=== PATIENT | male | born 1975 | race American Indian/Alaskan Native ===

== ENCOUNTER 2021-02-24 14:55 | Emergency (ER) | payer BC ==
--- NOTE | 2021-02-24 19:05 | Emergency Department Report ---
ED Abdominal Pain HPI - General Chief Complaint: Abdominal Pain Stated Complaint: LOWER BACK PAIN, FREQUENT URINATION Time Seen by Provider: 02/24/21 18:57 Source: patient Mode of arrival: Ambulatory Limitations: No Limitations - History of Present Illness Initial Comments: Patient is a 45-year-old male presents emergency room complaints of left flank p ain that began 4 days ago. He states that the pain radiates to his left side of his abdomen. He states he has had urinary frequency and hematuria. He states occasionally at the end of urination he feels a tingling sensation. He denies any pain or swelling of the testicles, nausea, vomiting, diarrhea, penile discharge. He states he is sexually active only with 1 partner and denies any concerns for STDs. No past medical history. No allergies medications. - Related Data Previous Rx's Medication Instructions Recorded Last Taken Type Ciprofloxacin HCl [Ciprofloxacin 500 mg PO BID 7 Days #28 tablet 02/24/21 Unknown Rx TAB] Doxycycline Hyclate [Doxycycline 100 mg PO BID 7 Days #14 tab 02/24/21 Unknown Rx Hyclate TAB] Fluconazole [Diflucan TAB] 150 mg PO QDAY 1 Days #3 tablet 02/24/21 Unknown Rx Allergies Allergy/AdvReac Type Severity Reaction Status Date / Time No Known Allergies Allergy Unverified 02/24/21 17:24 ED Review of Systems ROS: Stated complaint: LOWER BACK PAIN, FREQUENT URINATION Other details as noted in HPI Comment: All other systems reviewed and negative ED Past Medical Hx - Medications Home Medications: Home Medications Medication Instructions Recorded Confirmed Last Taken Type Ciprofloxacin HCl [Ciprofloxacin 500 mg PO BID 7 Days #28 tablet 02/24/21 Unknown Rx TAB] Doxycycline Hyclate [Doxycycline 100 mg PO BID 7 Days #14 tab 02/24/21 Unknown Rx Hyclate TAB] Fluconazole [Diflucan TAB] 150 mg PO QDAY 1 Days #3 tablet 02/24/21 Unknown Rx ED Physical Exam - General Limitations: No Limitations General appearance: alert, in no apparent distress - Head Head exam: Present: atraumatic, normocephalic - Eye Eye exam: Present: normal appearance - ENT ENT exam: Present: mucous membranes moist - Respiratory Respiratory exam: Present: normal lung sounds bilaterally. Absent: respiratory distress, wheezes, rales, rhonchi, stridor, chest wall tenderness, accessory muscle use, decreased breath sounds, prolonged expiratory - Cardiovascular Cardiovascular Exam: Present: regular rate, normal rhythm, normal heart sounds. Absent: systolic murmur, diastolic murmur, rubs, gallop - GI/Abdominal GI/Abdominal exam: Present: soft, tenderness (LLQ), normal bowel sounds. Absent: distended, guarding, rebound, rigid - Back Exam Back exam: Present: CVA tenderness (L). Absent: CVA tenderness (R) - Neurological Exam Neurological exam: Present: alert, oriented X3 - Psychiatric Psychiatric exam: Present: normal affect, normal mood - Skin Skin exam: Present: warm, dry, intact ED Course Vital Signs 02/24/21 02/24/21 19:17 20:50 Temperature 98.4 F Pulse Rate 82 92 H Respiratory 16 16 Rate Blood Pressure 124/82 [Left] O2 Sat by Pulse 98 97 Oximetry ED Medical Decision Making - Lab Data Result diagrams: 02/24/21 18:57 02/24/21 18:57 Lab Results 02/24/21 02/24/21 02/24/21 Range/Units 18:57 18:57 19:00 WBC 10.3 (4.5-11.0) K/mm3 RBC 5.20 H (3.65-5.03) M/mm3 Hgb 16.4 H (11.8-15.2) gm/dl Hct 47.5 H (35.5-45.6) % MCV 91 (84-94) fl MCH 32 (28-32) pg MCHC 35 H (32-34) % RDW 12.8 L (13.2-15.2) % Plt Count 184 (140-440) K/mm3 Lymph % (Auto) 22.7 (13.4-35.0) % [place] % (Auto) 6.7 (0.0-7.3) % Eos % (Auto) 0.4 (0.0-4.3) % Baso % (Auto) 0.5 (0.0-1.8) % Lymph # (Auto) 2.3 (1.2-5.4) K/mm3 [place] # (Auto) 0.7 (0.0-0.8) K/mm3 Eos # (Auto) 0.0 (0.0-0.4) K/mm3 Baso # (Auto) 0.1 (0.0-0.1) K/mm3 Seg Neutrophils % 69.7 (40.0-70.0) % Seg Neutrophils # 7.2 (1.8-7.7) K/mm3 Sodium 136 L (137-145) mmol/L Potassium 4.0 (3.6-5.0) mmol/L Chloride 98.4 (98-107) mmol/L Carbon Dioxide 25 (22-30) mmol/L Anion Gap 17 mmol/L BUN 7 L (9-20) mg/dL Creatinine 1.1 (0.8-1.3) mg/dL Estimated GFR > 60 ml/min BUN/Creatinine Ratio 6 % Glucose 88 (75-100) mg/dL Calcium 9.4 (8.4-10.2) mg/dL Total Bilirubin 1.10 (0.1-1.2) mg/dL AST 19 (5-40) units/L ALT 29 (7-56) units/L Alkaline Phosphatase 87 (35-129) units/L Total Protein 9.0 H (6.3-8.2) g/dL Albumin 4.3 (3.9-5) g/dL Albumin/Globulin Ratio 0.9 % Urine Color Yellow (Yellow) Urine Turbidity Cloudy (Clear) Urine pH 5.0 (5.0-7.0) Ur Specific [place] 1.014 (1.003-1.030) Urine Protein 30 mg/dl (Negative) mg/dL Urine Glucose (UA) Neg (Negative) mg/dL Urine Ketones Neg (Negative) mg/dL Urine Blood Neg (Negative) Urine Nitrite Pos (Negative) Urine Bilirubin Neg (Negative) Urine Urobilinogen < 2.0 (<2.0) mg/dL Ur Leukocyte Esterase Lg (Negative) Urine WBC (Auto) > 182.0 H (0.0-6.0) /HPF Urine RBC (Auto) 23.0 (0.0-6.0) /HPF U Epithel Cells (Auto) 1.0 (0-13.0) /HPF Urine Bacteria (Auto) 2+ (Negative) /HPF Urine Mucus Few /HPF Urine Yeast (Budding) 1+ /HPF - Radiology Data Radiology results: report reviewed Ordering Physician: TAMAR MERRITT Date of Service: 02/24/21 Procedure(s): CT abdomen pelvis wo con Accession Number(s): [id number] cc: TAMAR MERRITT CT abdomen pelvis wo con INDICATION / CLINICAL INFORMATION: left flank pain, hematuria. TECHNIQUE: Axial CT imaging of abdomen and pelvis was obtained without contrast. Coronal and sagittal reformatted imaging obtained and reviewed. All CT scans at this location are performed using CT dose reduction for ALARA by means of automated exposure control. COMPARISON: None available. FINDINGS: CT abdomen without contrast demonstrates normal appearance of the liver, spleen, pancreas, right kidney, and adrenal glands. Gallbladder is unremarkable. No intrarenal calculi or hydronephrosis present. There is minimal prominence of the left collecting system and left ureter but there is no visible calculus present within the kidney, ureter, or bladder. This may suggest recent passage of a renal/ureteral calculus. CT pelvis without contrast demonstrates normal appearance of the appendix. No pelvic mass, free fluid, or focal inflammatory changes noted. GI tract is unremarkable. Urinary bladder is mostly collapsed but otherwise unremarkable. Visualized lung bases are well expanded and clear. Review of osseous structures is unremarkable. IMPRESSION: 1. Slight prominence of left urinary collecting system without evidence for visible calculus. This could indicate recent passage of an obstructing calculus with minimal dilatation remaining. Clinical correlation is recommended. 2. No other significant finding. Signer Name: Brittany Mayfield MD Signed: 02/24/2021 7:46 PM Workstation Name: [email or web address] Transcribed By: Dictated By: Brittany Mayfield MD Electronically Authenticated By: Brittany Mayfield MD Signed Date/Time: 02/24/211945 DD/ 40 TD/TT: - Medical Decision Making Patient is a 45-year-old male presents emergency room complaints of left flank pain that began 4 days ago. He states that the pain radiates to his left side of his abdomen. He states he has had urinary frequency and hematuria. He states occasionally at the end of urination he feels a tingling sensation. He denies any pain or swelling of the testicles, nausea, vomiting, diarrhea, penile discharge. He states he is sexually active only with 1 partner and denies any concerns for STDs. No past medical history. No allergies medications. vitals are normal. on exam: LLQ abd pain, left flank tenderness. labs are stable. UA shows evidence of UTI and yeast. pt states he is circumsized. CT abd pelvis: 1. Slight prominence of left urinary collecting system without evidence for visible calculus. This could indicate recent passage of an obstructing calculus with minimal dilatation remaining. Clinicalcorrelation is recommended. 2. No other significant finding. I again asked patient if he was concerned for STDs, he states he would like to be covered for them. Patient given ceftriaxone IM on the emergency department. discussed all results with pt and answered questions. advised pt Take medication as prescribed. Follow-up with a primary care doctor. Please have your urine retested by primary care doctor for clearance of bacteria. Return to emergency room for any new or worsening symptoms. Critical care attestation.: If time is entered above; I have spent that time in minutes in the direct care of this critically ill patient, excluding procedure time. ED Disposition Clinical Impression: Left flank pain, Yeast detected UTI (urinary tract infection) Qualifiers: Urinary tract infection type: acute cystitis Hematuria presence: with hematuria Qualified Code(s): N30.01 - Acute cystitis with hematuria Disposition: TO HOME OR SELFCARE Is pt being admited?: No Does the pt Need Aspirin: No Condition: Stable Instructions: Kidney Stones, Genital Yeast Infection, Male, Urinary Tract Infection, Adult Additional Instructions: Take medication as prescribed. Follow-up with a primary care doctor. Please have your urine retested by primary care doctor for clearance of bacteria. Return to emergency room for any new or worsening symptoms. walk [facility] Address: [address] [place] [id number] Prescriptions: Ciprofloxacin HCl [Ciprofloxacin TAB] 500 mg PO BID 7 Days #28 tablet Fluconazole [Diflucan TAB] 150 mg PO QDAY 1 Days #3 tablet Doxycycline Hyclate [Doxycycline Hyclate TAB] 100 mg PO BID 7 Days #14 tab Referrals: RULA MELENDEZ MD [Staff Physician] - 3-5 Days [facility] [Provider Group] - 3-5 Days Time of Disposition: 20:13 Print Language: MOZAMBICAN
[2021-02-24 19:17] VITALS: BP 124/82
[2021-02-24 19:20] LABS: Bacteria,Urine 2+ /HPF (Negative); Bilirubin,Urine NEG (Negative); Blood,Urine NEG (Negative); Color,Urine Yellow (Yellow); Mucus,Urine FEW /HPF; Urobilinogen,Urine < 2.0 mg/dL (<2.0)
[2021-02-24 19:27] LABS: WBC,Urine > 182.0 /HPF (0.0-6.0)
[2021-02-24 19:30] LABS: Basophils # (Auto) 0.1 K/mm3 (0.0-0.1); Basophils % (Auto) 0.5 % (0.0-1.8); Eosinophils % (Auto) 0.4 % (0.0-4.3); Hematocrit 47.5 % (35.5-45.6); Hemoglobin 16.4 gm/dl (11.8-15.2); Lymphocytes # (Auto) 2.3 K/mm3 (1.2-5.4); Lymphocytes % (Auto) 22.7 % (13.4-35.0); Mean Corpuscular HGB Conc 35 % (32-34); Mean Corpuscular Volume 91 fl (84-94); Monocytes # (Auto) 0.7 K/mm3 (0.0-0.8); Monocytes % (Auto) 6.7 % (0.0-7.3); Platelet Count 184 K/mm3 (140-440); Red Cell Distribution Width 12.8 % (13.2-15.2)
[2021-02-24 19:34] LABS: Alanine Aminotransferase 29 units/L (7-56); Albumin 4.3 g/dL (3.9-5); BUN/Creatinine Ratio 6; Blood Urea Nitrogen 7 mg/dL (9-20); Calcium 9.4 mg/dL (8.4-10.2); Hemolysis Index 8
--- NOTE | 2021-02-24 19:50 | Cat Scan Report ---
CT abdomen pelvis wo con INDICATION / CLINICAL INFORMATION: left flank pain, hematuria. TECHNIQUE: Axial CT imaging of abdomen and pelvis was obtained without contrast. Coronal and sagittal reformatte d imaging obtained and reviewed. All CT scans at this location are performed using CT dose reduction for ALARA by means of automated exposure control. COMPARISON: None available. FINDINGS: CT abdomen without contrast demonstrates normal appearance of the liver, spleen, pancreas, right kidn ey, and adrenal glands. Gallbladder is unremarkable. No intrarenal calculi or hydronephrosis present. There is minimal prominence of the left collecting system and left ureter but there is no visible ca lculus present within the kidney, ureter, or bladder. This may suggest recent passage of a renal/uret eral calculus. CT pelvis without contrast demonstrates normal appearance of the appendix. No pelvic mass, free fluid , or focal inflammatory changes noted. GI tract is unremarkable. Urinary bladder is mostly collapsed but otherwise unremarkable. Visualized lung bases are well expanded and clear. Review of osseous structures is unremarkable. IMPRESSION: 1. Slight prominence of left urinary collecting system without evidence for visible calculus. This co uld indicate recent passage of an obstructing calculus with minimal dilatation remaining. Clinical co rrelation is recommended. 2. No other significant finding. Signer Name: Brittany Mayfield MD Signed: 02/24/2021 7:46 PM Workstation Name: [email or web address]
[2021-02-24] MEDS ORDERED: ONDANSETRON 4 MG ODT TAB PO ONE (19:53)
[2021-02-24] MEDS ORDERED: LIDOCAINE-MPF (1%) 10 MG/1 ML VIAL 5 ML INFILTRATI ONE (19:53)
[2021-02-24] MEDS ORDERED: oxyCODONE /ACETAMINOPHEN 5-325MG TAB PO ONE (19:53)
== END 2021-02-24 20:50 | disposition home or self-care (01) ==
LOC: ED 14:55
DX: N39.0 Urinary tract infection, site not specified (principal); B37.9 Candidiasis, unspecified; R10.9 Unspecified abdominal pain; Z79.899 Other long term (current) drug therapy
CPT/HCPCS: 36415; 74176; 80053; 81001; 85025; 96372; 99284; J0696; Q0162

== ENCOUNTER 2022-02-19 11:45 | Emergency (ER) | payer BC ==
--- NOTE | 2022-02-19 12:45 | XRay Report ---
XR chest routine 2V INDICATION / CLINICAL INFORMATION: chest pain COMPARISON: None available. FINDINGS: SUPPORT DEVICES: None. HEART / MEDIASTINUM: No significant abnormality. LUNGS / PLEURA: Lungs are clear. Costophrenic sulci are sharp. No pneumothorax. ADDITIONAL FINDINGS: No significant additional findings. IMPRESSION: 1. No acute findings. Signer Name: Hunter Ruvalcaba MD Signed: 02/19/2022 12:41 PM Workstation Name: [id number]
[2022-02-19 12:56] LABS: Basophils # (Auto) 0.1 K/mm3 (0.0-0.1); Basophils % (Auto) 2.9 % (0.0-1.8); Eosinophils % (Auto) 0.3 % (0.0-4.3); Hematocrit 43.6 % (35.5-45.6); Hemoglobin 15.4 gm/dl (11.8-15.2); Lymphocytes # (Auto) 1.8 K/mm3 (1.2-5.4); Lymphocytes % (Auto) 35.5 % (13.4-35.0); Mean Corpuscular HGB Conc 36 % (32-34); Mean Corpuscular Volume 88 fl (84-94); Monocytes # (Auto) 0.4 K/mm3 (0.0-0.8); Monocytes % (Auto) 7.4 % (0.0-7.3); Platelet Count 152 K/mm3 (140-440); Red Blood Count 4.96 M/mm3 (3.65-5.03)
[2022-02-19 13:12] LABS: Alanine Aminotransferase 30 units/L (7-56); Albumin 4.7 g/dL (3.9-5); BUN/Creatinine Ratio 7; Blood Urea Nitrogen 7 mg/dL (9-20); Calcium 9.6 mg/dL (8.4-10.2); Hemolysis Index 5
[2022-02-19] MEDS ORDERED: DICYCLOMINE 10 MG/5 ML ORAL LIQD PO ONE (16:13)
[2022-02-19] MEDS ORDERED: ALUM-MAG HYDROXIDE-SIMETHICONE 200-200-20MG/5ML ORAL LIQD 30 ML PO ONE (16:13)
[2022-02-19] MEDS ORDERED: LIDOCAINE VISCOUS 2% 15 ML ORAL LIQD PO ONE (16:14)
--- NOTE | 2022-02-19 16:40 | XRay Report ---
ABDOMEN AP supine 1632 INDICATION: abdominal pain, no bm, r/o constipation COMPARISON: Palliative Medicine Physician images CT abdomen and pelvis 02/24/2021 FINDINGS: Bowel gas pattern is unremarkable. No obvious urinary tract calculi. Signer Name: Rom Singer MD Signed: 02/19/2022 4:35 PM Workstation Name: [email or web address]
--- NOTE | 2022-02-19 17:22 | Emergency Department Report ---
ED Chest Pain HPI - General Chief Complaint: Chest Pain Stated Complaint: CHEST PAIN/ STOMACH PAIN Time Seen by Provider: 02/19/22 16:01 Source: patient Mode of arrival: Ambulatory Limitations: No Limitations - History of Present Illness Initial Comments: 46-year-old black male with a past medical history of HIV presents to the emergency department for evaluation of chest pain. He states that for the last 2 or 3 days he has had persistent burning in his epigastric area then today, he started to have pain and burning to his chest area also. He states that pain was also associated with some nausea, shortness of breath, and a cough. He denies fever, dysuria, active vomiting, dizziness, and diaphoresis. He states pain at its worst was 5 out of 10. Of note, patient states that he does have a history of GERD that he used to take medicine for several years ago but does not anymore. Patient also complains of possible constipation states that he has been able to have a bowel movement in the past 4 days which is unusual for him. MD Complaint: chest pain -: Gradual, hour(s) Onset: during rest Pain Location: substernal, epigastric Pain Radiation: none Severity: moderate Severity scale (0 -10): 6 Quality: other (Burning) Consistency: constant re: nausea, dyspnea. denies: vomting, diaphoresis, sense of impending doom Other Symptoms: cough, burping. denies: fever, syncope, rash, acid taste in mouth, leg swelling, palpitations Treatments Prior to Arrival: none Aspirin use within the Past 7 Days: (0) No - Related Data Previous Rx's Medication Instructions Recorded Last Taken Type Ciprofloxacin HCl [Ciprofloxacin 500 mg PO BID 7 Days #28 tablet 02/24/21 Unknown Rx TAB] Doxycycline Hyclate [Doxycycline 100 mg PO BID 7 Days #14 tab 02/24/21 Unknown Rx Hyclate TAB] Fluconazole [Diflucan TAB] 150 mg PO QDAY 1 Days #3 tablet 02/24/21 Unknown Rx Famotidine [Pepcid] 40 mg PO QHS #30 tab 02/19/22 Unknown Rx Polyethylene Glycol 3350 [Miralax] 119 gm PO DAILY #1 bottle 02/19/22 Unknown Rx Allergies Allergy/AdvReac Type Severity Reaction Status Date / Time No Known Allergies Allergy Verified 02/19/22 17:24 Heart Score - HEART Score History: Slightly suspicious EKG: Normal Age: 45-65 Risk factors: 1-2 risk factors Troponin: < normal limit HEART Score: 2 - EKG Read Time Time EKG Completed: 12:26 EKG Read Time: 12:30 - Critical Actions Critical Actions: 0-3 pts:0.9-1.7%risk of adverse cardiac event.Candidate for discharge ED Review of Systems ROS: Stated complaint: CHEST PAIN/ STOMACH PAIN Other details as noted in HPI Comment: All other systems reviewed and negative Constitutional: denies: chills, fever, weakness Eyes: denies: vision change Respiratory: denies: cough, shortness of breath, SOB with exertion, SOB at rest, stridor, wheezing Cardiovascular: chest pain. denies: palpitations, dyspnea on exertion, orthopnea, edema, syncope, paroxysmal nocturnal dyspnea Gastrointestinal: abdominal pain, nausea, constipation. denies: vomiting, diarrhea, hematemesis, melena, hematochezia Genitourinary: denies: urgency, dysuria, frequency, hematuria, discharge, testicular pain Musculoskeletal: denies: back pain Skin: denies: rash, lesions Neurological: denies: headache, weakness ED Past Medical Hx - Past Medical History Previous Medical History?: No - Surgical History Additional Surgical History: hemorrhoid - Social History Smoking Status: Never Smoker - Medications Home Medications: Home Medications Medication Instructions Recorded Confirmed Last Taken Type Ciprofloxacin HCl [Ciprofloxacin 500 mg PO BID 7 Days #28 tablet 02/24/21 Unknown Rx TAB] Doxycycline Hyclate [Doxycycline 100 mg PO BID 7 Days #14 tab 02/24/21 Unknown Rx Hyclate TAB] Fluconazole [Diflucan TAB] 150 mg PO QDAY 1 Days #3 tablet 02/24/21 Unknown Rx Famotidine [Pepcid] 40 mg PO QHS #30 tab 02/19/22 Unknown Rx Polyethylene Glycol 3350 [Miralax] 119 gm PO DAILY #1 bottle 02/19/22 Unknown Rx ED Physical Exam - General Limitations: No Limitations General appearance: alert, in no apparent distress - Head Head exam: Present: atraumatic, normocephalic - Eye Eye exam: Present: normal appearance. Absent: scleral icterus, conjunctival injection, periorbital swelling, periorbital tenderness - ENT ENT exam: Present: normal exam - Neck Neck exam: Present: normal inspection, full ROM. Absent: tenderness, lymphadenopathy - Respiratory Respiratory exam: Present: normal lung sounds bilaterally. Absent: respiratory distress, wheezes, rales, rhonchi, stridor, chest wall tenderness - Cardiovascular Cardiovascular Exam: Present: bradycardia (Per EKG), normal heart sounds - GI/Abdominal GI/Abdominal exam: Present: soft, tenderness (Epigastric area), normal bowel sounds. Absent: distended, guarding, rebound, rigid - Extremities Exam Extremities exam: Present: normal inspection, full ROM, normal capillary refill. Absent: tenderness, pedal edema, joint swelling, calf tenderness - Back Exam Back exam: Present: normal inspection. Absent: CVA tenderness (R), CVA tend erness (L), vertebral tenderness - Neurological Exam Neurological exam: Present: alert, oriented X3, CN II-XII intact. Absent: motor sensory deficit - Psychiatric Psychiatric exam: Present: normal affect, normal mood - Skin Skin exam: Present: warm, dry, intact, normal color ED Course Vital Signs 02/19/22 18:07 Temperature 98.1 F Pulse Rate 64 Respiratory 16 Rate Blood Pressure 130/87 [Left] O2 Sat by Pulse 99 Oximetry - Reevaluation(s) Reevaluation #1: 02/19/22 17:27 Pain resolved after medication. Patient states that he feels much better. ADALID score - Adalid Score Age > 65: (0) No Aspirin use within the Past 7 Days: (0) No 3 or more CAD Risk Factors: (0) No 2 or more Angina events in past 24 hrs: (1) Yes Known CAD with more than 50% Stenosis: (0) No Elevated Cardiac Markers: (0) No ST Deviation Greater than 0.5mm: (0) No ADALID Score: 1 ED Medical Decision Making - Lab Data Result diagrams: 02/19/22 12:34 02/19/22 12:34 - EKG Data Interpretation: no acute changes - Radiology Data Radiology results: report reviewed, image reviewed Chest x-ray: FINDINGS: SUPPORT DEVICES: None. HEART / MEDIASTINUM: No significant abnormality. LUNGS / PLEURA: Lungs are clear. Costophrenic sulci are sharp. No pneumothorax. ADDITIONAL FINDINGS: No significant additional findings. IMPRESSION: 1. No acute findings. Abdomen KUB: FINDINGS: Bowel gas pattern is unremarkable. No obvious urinary tract calculi. - Medical Decision Making 46-year-old black male with a past medical history of HIV presents to the emergency department for evaluation of chest pain. He states that for the last 2 or 3 days he has had persistent burning in his epigastric area then today, he started to have pain and burning to his chest area also. He states that pain was also associated with some nausea, shortness of breath, and a cough. He denies fever, dysuria, active vomiting, dizziness, and diaphoresis. He states pain at its worst was 5 out of 10. Of note, patient states that he does have a history of GERD that he used to take medicine for several years ago but does not anymore. Patient also complains of possible constipation states that he has been able to have a bowel movement in the past 4 days which is unusual for him. Physical exam unremarkable. EKG without any acute ischemic changes noted, troponin negative x2, chest x-ray without any acute abnormalities noted. KUB wi thout obstruction or constipation. Epigastric and chest pain resolved after GI cocktail. Patient will be discharged home with Pepcid to use daily for reflux type symptoms and daily MiraLAX until he has good bowel movements. He is advised to follow-up with his primary care provider for further evaluation and management of any worsening symptoms. He is advised to return to the emergency department for any concerning symptoms. He verbalized understanding of and agreement with plan of care. Critical care attestation.: If time is entered above; I have spent that time in minutes in the direct care of this critically ill patient, excluding procedure time. ED Disposition Clinical Impression: Epigastric pain Constipation Qualifiers: Constipation type: unspecified constipation type Qualified Code(s): K59.00 - Constipation, unspecified Disposition: 01 HOME / SELF CARE / HOMELESS Is pt being admited?: No Does the pt Need Aspirin: No Condition: Stable Instructions: Food Choices for Gastroesophageal Reflux Disease, Adult, [id number], Constipation, Adult, [id number], Gastroesophageal Reflux Disease, Adult, [id number] Additional Instructions: Take medications as prescribed. Follow-up with primary care provider for further evaluation and management. Return to the emergency department as needed. Prescriptions: Famotidine [Pepcid] 40 mg PO QHS #30 tab Polyethylene Glycol 3350 [Miralax] 119 gm PO DAILY #1 bottle Referrals: RULA MELENDEZ MD [Staff Physician] - 3-5 Days Forms: Work/School Release Form(ED) Time of Disposition: 18:20
[2022-02-19 18:10] VITALS: BP 130/87
--- NOTE | 2022-02-20 08:41 | Electrocardiograph Report ---
[facility] Test Date: 2022-02-19 Test Time: 12:26:21 Pat Name: IRAJ LAMBERT Department: Room: Gender: M Side Laster Staple: QING : 1975 Requested By: ED DOC Order Number: [id number] Reading MD: Juan Kline Measurements Intervals [place] Rate: 57 P: 14 PA: 135 QRS: 24 QRSD: 91 T: 38 QT: 399 QTc: 388 Interpretive Statements Sinus rhythm Consider left ventricular hypertrophy ST elevation suggests acute pericarditis No previous ECG available for comparison Electronically Signed On 02-20-2022 8:40:44 EDT by Juan Kline
== END 2022-02-19 19:00 | disposition home or self-care (01) ==
LOC: ED 11:45
DX: R10.13 Epigastric pain (principal); K59.00 Constipation, unspecified
CPT/HCPCS: 36415; 71046; 74018; 80053; 84484; 85025; 93005; 99284